=== PATIENT | female | born 1995 | race Caucasian/White ===

== ENCOUNTER 2022-11-23 21:56 | Emergency (ER) | payer MEDICAID, SELFPAY ==
[2022-11-23 22:05] VITALS: BP 134/81; PULSE 107; RESP 20; TEMP 36.7; O2SAT 97; BMI 36.6
[2022-11-23 22:27] LABS: Basophils % 0.5 %; Eosinophils # 0.1 10^3/uL (0.0-0.8); Eosinophils % 0.8 %; Hematocrit 37.9 % (37.0-47.0); Hemoglobin 12.4 g/dL (11.5-15.3); Lymphocytes # 2.3 10^3/uL (0.8-4.8); Lymphocytes % 29.8 %; Mean Corpuscular HGB Conc 32.7 g/dL (30.0-36.0); Mean Corpuscular Hemoglobin 29.1 pg (28.0-34.0); Mean Platelet Volume 10.4 fL (7.4-10.4); Monocytes # 0.8 10^3/uL (0.2-0.9); Monocytes % 10.8 %; Neutrophils % 57.3 %; Nucleated Red Blood Cells % 0 %; Platelet Count 171 10^3/cmm (130-400); Red Blood Count 4.26 10^6/uL (4.1-5.3); Red Cell Distribution Width 15.2 % (12.1-15.1); White Blood Count 7.7 10^3/uL (4.0-10.0)
[2022-11-23 22:45] LABS: Alanine Aminotransferase 12 U/L (0-33); Albumin Level 3.7 g/dL (3.5-5.2); Alkaline Phosphatase 106 U/L (35-105); Anion Gap 14.5 (5-19); Aspartate Amino Transferase 14 U/L (0-32); Blood Urea Nitrogen 6 mg/dL (6-20); Calcium 9.3 mg/dL (8.5-10.5); Carbon Dioxide 20 mmol/L (22-29); Chloride 105 mmol/L (98-107); Globulin 2.9 g/dL (1.3-4.6); Glomerular Filtration Rate 194.5 mL/min (90-130); Glucose 86 mg/dL (65-115); Lipase 16 U/L (13-60); Osmolality Calculated 279 mOsm/kg (285-295); Potassium 3.5 mmol/L (3.5-5.1); Sodium 136 mmol/L (136-145); Total Bilirubin 0.2 mg/dL (0.15-1.2); Total Protein 6.6 g/dL (6.6-8.7)
[2022-11-24 00:43] LABS: Add Urine Microscopic? NO; Charge for UA Resulting for Rev
[2022-11-24 00:49] LABS: Bilirubin Urine Neg (Negative); Blood Urine Neg (Negative); Glucose Urine UA Norm (Normal); Ketones Urine 1+ (Negative); Leukocyte Esterase Urine Negative (Negative); Nitrate Urine Negative (Negative); Protein Urine Neg (Negative); Urine Appearance Clear (CLEAR); Urine Color Yellow (Yellow); Urobilinogen Urine 1 mg/dL (Negative); pH Urine 5 (5-7)
[2022-11-24] MEDS: metoclopramide 10 mg Tablet PO (00:57)
--- NOTE | 2022-11-24 01:00 | ED_ITS ---
HPI - General Adult General: Chief complaint: General Medical Stated complaint: headache, sinus congestion, abdomen pain-17wks Time Seen by Provider: 11/24/22 00:31 Source: patient Mode of arrival: ambulatory Limitations: no limitations History of Present Illness: 27-year-old female who is currently 17 weeks states she has been having nasal congestion along with sinus pain states she also had slight cough as well. States that she feels like she may have a sinus infection. She states that she is also has not seen OB for has had some slight abdominal cramping 1 make sure baby is okay denies any dysuria or vaginal bleeding. Associated symptoms: Reports headache(s); Deny chest pain, dyspnea, nausea, rash or vomiting Review of Systems Const: Denies: fever(s), chills, body aches or change in appetite Eyes: Denies: blurry vision or eye discomfort ENMT: Reports: nasal congestion; Denies: throat pain or dental pain Card: Denies: chest pain Resp: Denies: dyspnea GI: Reports: abdominal pain; Denies: nausea, vomiting or diarrhea : Denies: dysuria Musc: Denies: neck pain or back pain Skin/Breast: Denies: rash Neuro: Reports: headache(s) [facility] ED Female Reproductive History: Date of last menstrual period: 07/22/22 Physical Exam Const: COMMON NORMALS: no acute distress, patient oriented x3 and healthy appearing HENMT: COMMON NORMALS: normocephalic and atraumatic HEAD & SCALP: normocephalic and atraumatic Eye: COMMON NORMALS: Equal, round and reactive pupils present and EOMs intact bilaterally PUPIL: Yes Equal, round and reactive pupils present Neck/C-Spine: COMMON NORMALS: full ROM and supple Chest: COMMONS NORMALS: normal inspection of the chest and normal palpation of entire chest wall Resp: COMMON NORMALS: normal respiratory effort, No retractions, No use of ac cessory muscles and clear to auscultation bilaterally AUSCULTATION: clear to auscultation bilaterally Cardio: COMMON NORMALS: regular rate, regular rhythm and No murmurs present (Cardio) RATE: regular rate RHYTHM: regular rhythm GI: COMMON NORMALS: Normal to inspection, nondistended, normoactive bowel sounds present, Soft to palpation, non-tender and no masses PALPATION: Yes Soft to palpation Extremity: COMMON NORMALS: normal to inspection and full ROM Neuro: COMMON NORMALS: patient oriented x3, moves all extremities and no focal motor deficits Psych: COMMON NORMALS: mental status grossly normal, Normal thought process present and cooperative THOUGHT PROCESS: Normal thought process present Skin: COMMON NORMALS: no rashes or lesions noted and no wounds GENERAL SKIN EXAM: no rashes or lesions noted Course Vital Signs: Vital signs: Vital Signs Temperature 98.0 F 11/23/22 22:05 Pulse Rate 107 H 11/23/22 22:05 Respiratory Rate 20 H 11/23/22 22:05 Blood Pressure 134/81 11/23/22 22:05 Pulse Oximetry 97 11/23/22 22:05 Oxygen Delivery Me thod Room Air 11/23/22 22:05 MDM - General Adult Medical Decision Making Patient presents here with cough congestion she is COVID-positive likely causing the symptoms I did a bedside ultrasound showed IUP consistent with dates heart rate 148 she has no real complaints she is stable for discharge she is to follow-up with her OB she is return if worsening she understands agrees to plan. Medical Records I reviewed the patient's medical records. Lab Data I reviewed the patient's lab results. 11/23/22 22:20 11/23/22 22:20 Laboratory Results WBC 7.7 10^3/uL (4.0-10.0) 11/23/22 22:20 RBC 4.26 10^6/uL (4.1-5.3) 11/23/22 22:20 Hgb 12.4 g/dL (11.5-15.3) 11/23/22 22:20 Hct 37.9 % (37.0-47.0) 11/23/22 22:20 MCV 89.0 fl (81-99) 11/23/22 22:20 MCH 29.1 pg (28.0-34.0) 11/23/22 22:20 MCHC 32.7 g/dL (30.0-36.0) 11/23/22 22:20 RDW 15.2 % (12.1-15.1) H 11/23/22 22:20 Plt Count 171 10^3/cmm (130-400) 11/23/22 22:20 MPV 10.4 fL (7.4-10.4) 11/23/22 22:20 Neut % (Auto) 57.3 % 11/23/22 22:20 Lymph % (Auto) 29.8 % 11/23/22 22:20 [place] % (Auto) 10.8 % 11/23/22 22:20 Eos % (Auto) 0.8 % 11/23/22 22:20 Baso % (Auto) 0.5 % 11/23/22 22:20 Neut # (Auto) 4.40 10^3/uL (1.8-7.7) 11/23/22 22:20 Lymph # (Auto) 2.3 10^3/uL (0.8-4.8) 11/23/22 22:20 [place] # (Auto) 0.8 10^3/uL (0.2-0.9) 11/23/22 22:20 Eos # (Auto) 0.1 10^3/uL (0.0-0.8) 11/23/22 22:20 Baso # (Auto) 0.0 10^3/uL (0.0-0.1) 11/23/22 22:20 Nucleated RBC % (auto) 0 % 11/23/22 22:20 Nucleated RBCs # 0.0 /100WBC 11/23/22 22:20 Sodium 136 mmol/L (136-145) 11/23/22 22:20 Potassium 3.5 mmol/L (3.5-5.1) 11/23/22 22:20 Chloride 105 mmol/L (98-107) 11/23/22 22:20 Carbon Dioxide 20 mmol/L (22-29) L 11/23/22 22:20 Anion Gap 14.5 (5-19) 11/23/22 22:20 BUN 6 mg/dL (6-20) 11/23/22 22:20 Creatinine 0.4 mg/dL (0.5-0.9) L 11/23/22 22:20 GFR Calculation 194.5 mL/min (90-130) H 11/23/22 22:20 Glucose 86 mg/dL (65-115) 11/23/22 22:20 Calculated Osmolality 279 mOsm/kg (285-295) L 11/23/22 22:20 Calcium 9.3 mg/dL (8.5-10.5) 11/23/22 22:20 Total Bilirubin 0.2 mg/dL (0.15-1.2) 11/23/22 22:20 AST 14 U/L (0-32) 11/23/22 22:20 ALT 12 U/L (0-33) 11/23/22 22:20 Alkaline Phosphatase 106 U/L (35-105) H 11/23/22 22:20 Total Protein 6.6 g/dL (6.6-8.7) 11/23/22 22:20 Albumin 3.7 g/dL (3.5-5.2) 11/23/22 22:20 Globulin 2.9 g/dL (1.3-4.6) 11/23/22 22:20 Lipase 16 U/L (13-60) 11/23/22 22:20 Urine Color Yellow (Yellow) 11/24/22 00:40 Urine Appearance Clear (CLEAR) 11/24/22 00:40 Urine pH 5 (5-7) 11/24/22 00:40 Ur Specific [place] 1.030 (1.005-1.030) 11/24/22 00:40 Urine Protein Neg (Negative) 11/24/22 00:40 Urine Glucose (UA) Norm (Normal) 11/24/22 00:40 Urine Ketones 1+ (Negative) H 11/24/22 00:40 Urine Blood Neg (Negative) 11/24/22 00:40 Urine Nitrate Negative (Negative) 11/24/22 00:40 Urine Bilirubin Neg (Negative) 11/24/22 00:40 Urine Urobilinogen 1 mg/dL (Negative) H 11/24/22 00:40 Ur Leukocyte Esterase Negative (Negative) 11/24/22 00:40 SARS-CoV-2 Ag (Rapid) positive (Negative) 11/24/22 00:27 Discharge Plan Discharge Patient Disposition: Home Clinical Impression: COVID-19, Condition: Stable Discharge Orders: Discharge ED (Routine); Ordered 11/24/22 Ordered By: Marc Mills Referrals: Devang Jay MD [Primary Care Provider] - Discharge Diet: Advance as tolerated Discharge Activity: Resume usual activity Patient Instructions: (ED), COVID-19 (Coronavirus Disease 2019) (ED) Coding Level of Care Code ED [employer] T[employer] for [facility] [place]
[2022-11-24 01:12] LABS: SARS Covid-2 Antigen positive (Negative)
[2022-11-24 01:45] VITALS: BP 137/80; PULSE 92; RESP 18; O2SAT 92
== END 2022-11-24 01:50 | disposition home or self-care (01) ==
PROVIDERS: Emergency Provider Emergency Medicine; PCP Family Medicine
DX: O98.512 Other viral diseases complicating pregnancy, second trimester (principal); U07.1 COVID-19; Z3A.17 17 weeks gestation of pregnancy
CPT/HCPCS: 36415; 80053; 81003; 83690; 85025; 87426; 99283; J8597